=== PATIENT | male | born 1940 | race Caucasian/White ===

== ENCOUNTER 2020-02-01 13:55 | Outpatient (CLI) | payer MEDICARE, SELFPAY ==
--- NOTE | ~2020-02-01 | US_ITS ---
EXAMINATION: US art doppler w press UE BI DATE: 02/01/2020 14:45 INDICATION: Variable blood pressures in the upper extremities TECHNIQUE: Segmental pressures and plethysmographic and Doppler waveforms of the upper extremity leonor philipp were obtained. COMPARISON: None. FINDINGS: Right and left brachial artery pressures of 177 mm Hg and 170 mm Hg, respectively, are concordant (no rmal difference <= 30 mmHg). The right finger:brachial systolic pressure ratio is 0.92 (normal > 0.8) . Segmental pressure gradients are normal. Arterial waveforms are biphasic at the right subclavian an d axillary arteries and triphasic in the more distal arteries with brisk systolic upstrokes throughou t the right upper limb (normal upstroke < 0.2 s). Cardiac arrhythmia is present. The left finger:brachial systolic pressure ratio is 1.12. Segmental pressure gradients are increased between the left ulnar artery and both the left radial artery at the same level as well as the contra lateral right ulnar artery. Arterial waveforms are triphasic with brisk systolic upstrokes throughout the left upper limb. IMPRESSION: 1. No significant arterial occlusive disease to either upper limb with normal bilateral ankle-brachia l indices. 2. Cardiac arrhythmias is present which results in some variability in the height of the systolic pea ks and which may account for the reported variability and blood pressures. Correlate with EKG. Reviewed, dictated and finalized at location [facility] [employer] [facility] IMPRESSION: 1. No significant arterial occlusive disease to either upper limb with normal b ilateral ankle-brachial indices. 2. Cardiac arrhythmias is present which results in some variability in the heig ht of the systolic peaks and which may account for the reported variability and blood pressures. Correlate with EKG.
== END 2020-02-01 13:56 | disposition home or self-care (01) ==
PROVIDERS: PCP Family Medicine; Visit Provider Family Medicine
DX: R09.89 Other specified symptoms and signs involving the circulatory and respiratory systems (principal); I49.9 Cardiac arrhythmia, unspecified
CPT/HCPCS: 93923

== ENCOUNTER 2020-02-07 13:49 | Outpatient (CLI) | payer MEDICARE, SELFPAY ==
--- NOTE | 2020-02-07 | ECHO_ITS ---
Patient Info Name: Winston Purdy Age: 79 years : 1940 Gender: Male Ht: 75 in Wt: 220 lbs BSA: 2.31 m2 HR: 55 bpm BP: 177 / 89 mmHg Heart Rhythm: Sinus Rhythm Technical Quality: Good Exam Date: 02/07/2020 2:20 PM Exam Location: [facility] Patient Status: Outpatient Admit Date: 02/07/2020 Staff Ordering Physician: Pratik Rock MD Account Contact Associate: Pablo Lim RDCS Attending Provider: Pratik Rock MD Referring Physician: Pranav CEDENO; Exam Type: CA echo doppler color flow Study Info Indications R01.1 - Cardiac murmur, unspecified Complete two-dimensional, color flow and Doppler transthoracic echocardiogram is performed. History/Risk Factors Murmur; HTN. Summary 1. Complete two-dimensional, color flow and Doppler transthoracic echocardiogram is performed. 2. Left ventricular chamber dimension is mildly enlarged. 3. Left ventricular systolic function is normal, estimated at 55-60%. 4. There is mildly increased left ventricular wall thickness. 5. The left ventricular diastolic function is grade I diastolic dysfunction. 6. There is mild mitral valve regurgitation. 7. There is mild tricuspid valve regurgitation. Left Ventricle Left ventricular chamber dimension is mildly enlarged. Left ventricular systolic function is normal, estimated at 55-60%. There is mildly increased left ventricular wall thickness. The left ventricular diastolic function is grade I diastolic dysfunction. Right Ventricle Right ventricular chamber dimension is normal. Right ventricular systolic function is normal. Left Atria Left atrial chamber dimension is normal. Right Atria Right atrial chamber dimension is normal. Atrial Septum Intact interatrial septum visualized by color flow imaging. Aortic Valve The aortic valve is probable trileaflet. There is mild aortic valve sclerosis. There is no aortic valve stenosis. There is trace aortic valve regurgitation. Pulmonic Valve The pulmonic valve is normal. There is no pulmonic valve stenosis. There is trace pulmonic regurgitation. Mitral Valve The mitral valve has normal leaflets. There is no mitral valve stenosis. There is mild mitral valve regurgitation. Tricuspid Valve The tricuspid valve leaflets are normal. There is no significant tricuspid valve stenosis. There is mild tricuspid valve regurgitation. Pericardium/Pleural The pericardium appears normal. There is no pericardial effusion. Inferior Vena Cava Normal inferior vena cava with >50% collapse upon inspiration consistent with normal right atrial pressure, 5 mmHg. Aorta The aortic root size at the sinus of Valsalva is normal. The prox ascending aorta size is normal. Left Ventricular Outflow Tract Name Value Normal LVOT 2D LVOT Diameter 2.0 cm LVOT Doppler LVOT Peak Gradient 3 mmHg LVOT Mean Gradient 2 mmHg LVOT VTI 22 cm LVOT VTI/AV VTI Ratio 0.6 LVOT Stroke Volume 73 ml
== END 2020-02-07 13:50 | disposition home or self-care (01) ==
PROVIDERS: PCP Family Medicine; Visit Provider Family Medicine
DX: R01.1 Cardiac murmur, unspecified (principal); I10 Essential (primary) hypertension
CPT/HCPCS: 93306